=== PATIENT | male | born 1950 | race American Indian/Alaskan Native ===

== ENCOUNTER 2016-03-18 19:55 | Inpatient (IN) | payer MEDICARE ==
--- NOTE | 2016-03-18 20:09 | Emergency Department Report ---
HPI - General Time Seen by Provider: 03/18/16 19:58 - HPI HPI: This is a 66-year-old Afro-Iraqi male who presents to the emergency department by EMS as a code stroke. The patient was going over to a friend's house and at about 7 PM this evening he began having left sided paralysis, left- sided facial droop, and lost the ability to speak and fell to the ground. The friend found him and called and he wants. Patient was not given any treatment but in route he began to regain all of his function but still complains of some decreased sensation to the left side. Patient has a history of hypertension but no previous history of VA, CVA, PE/DVT. He denies tobacco abuse or any illicit drug use. ED Past Medical Hx - Past Medical History Hx Hypertension: Yes - Surgical History Additional Surgical History: LEFT MIDDLE FINGER-DISTAL AMPUTATION - Social History Smoking Status: Current Every Day Smoker Substance Use Type: Alcohol, Prescribed - Medications Home Medications: Home Medications Medication Instructions Recorded Confirmed Last Taken Type Amlodipine Besylate/Benazepril 1 each PO QDAY 03/18/16 03/18/16 03/18/16 History [Amlodipine-Benazepril 5-20 mg] Ciprofloxacin HCl [Ciprofloxacin 500 mg PO Q12HR 03/18/16 03/18/16 03/18/16 History TAB] Lisinopril/Hydrochlorothiazide 1 tab PO QDAY 03/18/16 03/18/16 03/18/16 History [Zestoretic 20-25 mg] Terazosin [Hytrin] 5 mg PO QHS 03/18/16 03/18/16 03/18/16 History ED Review of Systems ROS: Stated complaint: PASSED OUT/POSS STROKE Other details as noted in HPI Comment: All other systems reviewed and negative Constitutional: weakness. denies: chills, fever Eyes: denies: eye pain, eye discharge, vision change ENT: other (facial droop). denies: throat pain Respiratory: denies: cough, shortness of breath, wheezing Cardiovascular: denies: chest pain, palpitations Gastrointestinal: denies: abdominal pain, nausea, diarrhea Genitourinary: denies: urgency, dysuria Musculoskeletal: denies: back pain, joint swelling, arthralgia Skin: denies: rash, lesions Neurological: weakness, numbness, other (aphasia) Physical Exam - Physical Exam Physical Exam: GENERAL: The patient is well-developed well-nourished. Patient slightly anxious but otherwise in no distress. HEENT: Normocephalic. Atraumatic. Extraocular motions are intact. Patient has moist mucous membranes. Pupils equal reactive to light bilaterally. NECK: Supple. Trachea is midline. CHEST/LUNGS: Clear to auscultation. There is no respiratory distress noted. HEART/CARDIOVASCULAR: Regular. There is no tachycardia. There is no gallop rub or murmur. ABDOMEN: Abdomen is soft, nontender. Patient has normal bowel sounds. There is no abdominal distention. SKIN: There is no rash. There is no edema. There is no diaphoresis. NEURO: The patient is awake, alert, and oriented. The patient is cooperative. The patient has no motor neurologic deficits. The patient has normal speech. No pronator drift. No dysmetria. There is some mild subjective decreased sensation to the left side of the face and the left arm. MUSCULOSKELETAL: There is no tenderness or deformity. There is no limitation range of motion. There is no evidence of acute injury. Muscle strength 5 out of 5 for upper and lower extremities bilaterally. ED Course - Consultations Consultation #1: I spoke with the telemedicine neurologist, Dr. Ballesteros, regarding the patient's symptoms and regain of function and my suspicion for TIA. Based on that, Dr. Ballesteros agrees that the patient most likely had a TIA and the patient should be admitted for stroke workup but is not a TPA candidate. 03/18/16 20:29 ED Medical Decision Making - Lab Data Result diagrams: 03/18/16 08:00 03/18/16 08:00 - EKG Data -: EKG Interpreted by Me EKG shows normal: sinus rhythm, axis, intervals, QRS complexes (LVH), ST-T waves Rate: normal - EKG Data When compared to previous EKG there are: no significant change Interpretation: LVH - Radiology Data Radiology results: report reviewed, image reviewed interpreted by me: Chest x-ray did not show any acute process. Heart is normal shape and size. No effusions. No pneumothorax. No signs of pneumonia seen. CT of the head does not show any acute process including no hemorrhage, mass, shift, diffuse edema or skull fracture. - Medical Decision Making 66-year-old male presents to the emergency department after having left-sided hemiplegia, facial droop, decreased sensation and then return of function in route. CT of the head was negative for any acute process. Patient's labs show some mild renal insufficiency. Spoke with the medicine neurology who agrees with the diagnosis of TIA. Patient be admitted to hospital for further evaluation and treatment. Accepted for admission by the hospitalist, Dr Jackson. - Differential Diagnosis CVA, TIA, brain bleed, seizure Critical Care Time: No Critical care attestation.: If time is entered above; I have spent that time in minutes in the direct care of this critically ill patient, excluding procedure time. ED Disposition Clinical Impression: Renal insufficiency, mild TIA (transient ischemic attack) Qualifiers: Transient cerebral ischemia type: unspecified Qualified Code(s): G45.9 - Transient cerebral ischemic attack, unspecified Disposition: OP ADMITTED IP TO THIS HOSP Is pt being admited?: Yes Condition: Stable Referrals: EMILY CASTRO MD [Primary Care Provider] - 3-5 Days Time of Disposition: 22:19
[2016-03-18 20:12] LABS: Hematocrit 40.1 % (35.5-45.6); Hemoglobin 13.3 gm/dl (11.8-15.2); Mean Corpuscular HGB Conc 33 % (32-34); Mean Corpuscular Hemoglobin 32 pg (28-32); Mean Corpuscular Volume 96 fl (84-94); Platelet Count 212 K/mm3 (140-440); Red Blood Count 4.19 M/mm3 (3.65-5.03); Red Cell Distribution Width 13.2 % (13.2-15.2); White Blood Count 9.4 K/mm3 (4.5-11.0)
[2016-03-18 20:22] LABS: INR 1.01 (0.87-1.13); Partial Thromboplastin Time 27.5 Sec. (24.2-36.6)
[2016-03-18 20:30] LABS: Creatine Kinase MB 2.7 ng/mL (0.0-4.0)
[2016-03-18 20:31] LABS: Blood Urea Nitrogen 20 mg/dL (9-20); Calcium 9.3 mg/dL (8.4-10.2); Carbon Dioxide 25 mmol/L (22-30); Glucose 133 mg/dL (75-100)
[2016-03-18 20:32] LABS: Alanine Aminotransferase 15 units/L (7-56); Albumin 4.1 g/dL (3.9-5); Albumin/Globulin Ratio 1.3 %; Alkaline Phosphatase 72 units/L (35-129); Anion Gap 20 mmol/L; Bilirubin,Total 0.2 mg/dL (0.1-1.2); Chloride 95.8 mmol/L (98-107); Creatine Kinase 164 units/L (55-170); Potassium 3.7 mmol/L (3.6-5.0); Sodium 137 mmol/L (137-145); Total Protein 7.3 g/dL (6.3-8.2)
--- NOTE | 2016-03-18 20:33 | Cat Scan Report ---
FINAL REPORT PROCEDURE: CT HEAD/BRAIN WO CON TECHNIQUE: Computerized tomography of the head was performed without contrast material. HISTORY: neuro deficits < 6hrs or sx present upon awakening COMPARISON: No prior studies are available for comparison. FINDINGS: Skull and scalp: Normal. Paranasal sinuses: Extensive mucosal thickening and fluid suspected in the maxillary sinuses. Thickening in the ethmoid sinuses. Possible injury around the left maxillary sinus and orbit area. Defer to CT facial study with regards to evaluation of the bony anatomy and clinical correlation regarding history and presentation in that regard.. Ventricles and subarachnoid spaces: Normal. Cerebrum: No evidence of hemorrhage, acute infarction or mass . Cerebellum and brainstem: No evidence of hemorrhage, acute infarction or mass. Vasculature: No definite hyperdense MCA sign seen. Comments: Mild diffuse atrophy. Moderate low attenuated microischemic change periventricular deep white matter and subcortical locations consistent with chronic microischemic change appearance.. IMPRESSION: No definitive evidence of acute ischemic change however if symptoms and or concern persist consider MRI. There is scattered microischemic change in the deep white matter subcortical areas which could mask an early or subtle acute ischemic process not well delineated on screening CT scans.
[2016-03-18 20:49] LABS: Basophils % (Manual) 0 % (0.0-1.8); Blastocytes % (Manual) 0 %; Eosinophils % (Manual) 0 % (0.0-4.3)
[2016-03-18 20:50] LABS: Diff Status Complete; Platelet Estimate Consistent w Auto; RBC Morphology Normal
[2016-03-18] MEDS ORDERED: BABY ASPIRIN PO ONE (21:04)
--- NOTE | 2016-03-18 22:43 | Admit Criteria Form ---
Admission Criteria Documentation: TELEMETRY CARE Telemetry Admission Guidelines (Place 'X' for any and all applicable criteria): Admission to telemetry [A] may be indicated for ANY ONE of the following(1)(2)(3 )(4)(5): [ ]I. Cardiac disease, including ANY ONE of the following (9)(10)(11)(12)(13 ): [ ]a) Postacute VT [ ]b) Low-risk patients with ST-segment elevation VT who have undergone successful percutaneous coronary intervention [ ]c) Unstable angina [ ]d) Suspected VT (until it is ruled out) [ ]e) Post cardiac surgery (first 48 to 72 hours unless complications occur) [ ]f) Acute arrhythmias (including significant tachycardia or bradycardia) [B] [ ]g) Firing of an implantable cardioverter defibrillator [C] [ ]h) Suspected pacemaker or implantable cardioverter defibrillator malfunction (10) [ ]i) New administration or adjustment of an antiarrhythmic drug [D ] [ ]j) Child admitted for acute congestive heart failure [ ]j) Long QT syndrome [ ]k) Advanced heart block (eg, second-degree Mobitz type II, third- degree heart block) [ ]l) Acute myocarditis or pericarditis [ ]m) Short-term (ambulatory or inpatient) monitoring after a cardiac procedure as indicated by ANY ONE of the following [E]: [ ]i) Electrophysiologic studies [ ]ii) Percutaneous coronary intervention with stent placement [ ]iii) Pacemaker placement with cardiac conduction defect [ ]iv) Implantable cardiac defibrillator placement [ ]II. Drug overdose or poisoning with substance that causes arrhythmias or QT prolongation (eg, phenothiazines, sympathomimetic agents, cyclic antidepressants, digitalis, antiarrhythmic drugs)(15) [ ]III. Short-term (ambulatory or inpatient) monitoring after therapeutic or diagnostic procedure requiring conscious sedation or anesthesia (eg, endoscopy, elective cardioversion) [X ]IV. Acute cerebrovascular even[F](18) [ ]V. Massive blood transfusion (eg, at least 10 units of packed red blood cells in 24 hours) [ ]. Variceal bleeding after endoscopy, sclerotherapy, or IV vasopressin [ ]VII. Uncorrected electrolyte abnormalities associated with an increased risk of dangerous arrhythmia [G]; examples include [ ]a) Hyperkalemia with attributable ECG changes [ ]b) Potassium greater than 6.5 mmol/L (mEq/L) in a patient without history of chronic renal disease [ ]c) Prolonged QT attributed to hypokalemia, hypomagnesemia, or hypocalcemia [ ]VIII.Unexplained syncope or other neurologic event suspected of being due to arrhythmia due to a finding that increases risk; examples include(19)(20)(21): [ ]a) High-risk ECG findings (eg, bifascicular block, bradycardia, abnormal QT interval, ventricular pre- excitation) [ ]b) History of previous syncope due to arrhythmia [ ]c) Abnormal ventricular function (eg, reduced ejection fraction ) [ ]d) Exertional or supine syncope [ ]e) Concerning syncope characteristics (eg, sudden loss of consciousness without prodrome) [ ]f) Family history of sudden [ ]g) Use of arrhythmogenic medication [ ]h) Suspected cardiac ischemia [ ]i) Known channelopathy (eg, long QT syndrome, Brugada syndrome, or catecholaminergic paroxysmal ventricular tachycardia) [ ]j) Known structural heart disease (eg, hypertrophic cardiomyopathy , severe valvular disease) [ ]k) Palpitations preceding syncope The original [employer] content created by [employer] has been revised. The portions of the content which have been revised are identified through the use of italic text or in bold, and [employer] has neither reviewed nor approved the modified material. All other unmodified content is copyright [employer]. Please see references footnoted in the original [employer] edition 2016 Admission Criteria Met: Yes
[2016-03-18] MEDS ORDERED: DULCOLAX PR PRN (23:17)
[2016-03-18] MEDS ORDERED: MILK OF MAGNESIA PO PRN (23:17)
[2016-03-18] MEDS ORDERED: ZOFRAN IV PRN (23:17)
[2016-03-18] MEDS ORDERED: TYLENOL PO PRN (23:17)
[2016-03-18] MEDS ORDERED: APRESOLINE IV PRN (23:17)
[2016-03-18] MEDS ORDERED: SODIUM CHLORIDE FLUSH SYRINGE 10 ML IV PRN (23:17)
[2016-03-18 23:21] LABS: Creatine Kinase MB 2.7 ng/mL (0.0-4.0)
[2016-03-18 23:25] LABS: Creatine Kinase 169 units/L (55-170)
--- NOTE | 2016-03-18 23:58 | History and Physical Report ---
History of Present Illness Date of examination: 03/18/16 Date of admission: 03/18/16 22:14 History of present illness: 66-year-old man with a history of hypertension, diabetes comes emergency room because he developed weakness in the right leg, fell to the floor, no trauma to the head, also had aphasia. It's unclear how long the symptoms lasted for Patient denies chest pain, palpitation, shortness of breath, cough, abdominal pain, hematochezia, dysuria, frequency, fever chills, polydipsia polyuria, hot or cold intolerance, easy bruisability, or rash or bleeding from mucosal membrane, rhinorrhea, epistaxis, earache, tinnitus, blurry vision, eye discharge , anxiety, depression. Other review of systems negative PAST SURGICAL HISTORY: None SOCIAL HISTORY:Smoke half pack a day, drinks 3 beers every other day, no drugs FAMILY HISTORY: Hypertension Medications and Allergies Allergies Allergy/AdvReac Type Severity Reaction Status Date / Time cantolope Allergy Swelling Uncoded 12/21/14 08:49 Home Medications Medication Instructions Recorded Confirmed Last Taken Type Amlodipine Besylate/Benazepril 1 each PO QDAY 03/18/16 03/18/16 03/18/16 History [Amlodipine-Benazepril 5-20 mg] Ciprofloxacin HCl [Ciprofloxacin 500 mg PO Q12HR 03/18/16 03/18/16 03/18/16 History TAB] Lisinopril/Hydrochlorothiazide 1 tab PO QDAY 03/18/16 03/18/16 03/18/16 History [Zestoretic 20-25 mg] Terazosin [Hytrin] 5 mg PO QHS 03/18/16 03/18/16 03/18/16 History Active Meds: Active Medications Acetaminophen (Tylenol) 650 mg PO Q4H PRN PRN Reason: Pain, Mild (1-3) Aspirin (Aspirin) 325 mg PO QDAY TIN Bisacodyl (Dulcolax) 10 mg MO QDAY PRN PRN Reason: Constipation Enoxaparin Sodium (Lovenox) 40 mg SUB-Q QDAY@1000 TIN Hydralazine HCl (Apresoline) 5 mg IV Q6H PRN PRN Reason: Keep SBP between 160-185 mm Hg Magnesium Hydroxide (Milk Of Magnesia) 30 ml PO Q4H PRN PRN Reason: Constipation Ondansetron HCl (Zofran) 4 mg IV Q8H PRN PRN Reason: N/V unrelieved by Reglan Simvastatin (Zocor) 20 mg PO QHS TIN Sodium Chloride (Sodium Chloride Flush Syringe 10 Ml) 10 ml IV PRN PRN PRN Reason: LINE FLUSH Exam - Physical Exam Narrative exam: Gen. appearance: Patient lying in bed, no apparent distress HEENT: Normocephalic, atraumatic, pupils equally round and reactive to light, extraocular movement intact, and no sclericterus,. No JVD or thyromegaly or nodule,neck supple, no carotid bruit ,mucous membranes moist, no exudate or erythema Heart: S1, S2, regular rate and rhythm Lungs: Clear to auscultation bilaterally, breathing comfortable Abdomen: Positive bowel sounds, nontender, nondistended, no organomegaly Extremity: No edema, cyanosis, clubbing Skin: No rash, nodules, warm, dry Neuro: Oriented 3, cranial nerves II-12 intact, speech is fluent, motor and sensory intact - Constitutional Vitals: Temp Pulse Resp BP Pulse Ox 97.6 F 83 16 140/69 99 03/18/16 20:45 03/18/16 21:45 03/18/16 21:45 03/18/16 21:45 03/18/16 21:45 Results - Labs CBC & Chem 7: 03/18/16 08:00 03/18/16 08:00 - Imaging and Cardiology EKG: image reviewed Chest x-ray: image reviewed (nad, read by me) CT Scan - head: report reviewed Assessment and Plan TIA Acute renal insufficiency Hypertension Diabetes EPH Admit to medicine Obtain MRI head, echo, carotid doppler Do neuro checks, swallow screen Start aspirin, statin, IV fluids Consult neurology, PT/OT Start dvt prohalaxis, IV hydralazine for blood pressure control Check fingersticks initiate insulin sliding scale
[2016-03-19 01:11] LABS: Creatine Kinase MB 2.5 ng/mL (0.0-4.0)
[2016-03-19 01:12] LABS: Creatine Kinase 169 units/L (55-170)
[2016-03-19] MEDS ORDERED: D50W (25GM) IV PRN (03:07)
[2016-03-19 03:40] LABS: Urine Drugs of Abuse Note Disclamer
[2016-03-19] MEDS ORDERED: NACL 0.9% 1000 ML 1,000 ML IV SCH (04:00)
[2016-03-19 04:15] LABS: Mucus,Urine 3+ /HPF
[2016-03-19 04:22] LABS: Bilirubin,Urine NEG (Negative); Blood,Urine LG (Negative); Ketones,Urine NEG (Negative); Nitrite,Urine POS (Negative); Urobilinogen,Urine < 2.0 mg/dL (<2.0)
[2016-03-19 04:23] LABS: Leukocyte Esterase,Urine LG (Negative)
[2016-03-19 06:06] LABS: Creatine Kinase MB 2.6 ng/mL (0.0-4.0)
[2016-03-19 06:09] LABS: Creatine Kinase 231 units/L (55-170)
[2016-03-19] MEDS ORDERED: LOVENOX SUB-Q SCH (10:00)
[2016-03-19] MEDS ORDERED: AMLODIPINE BESYLATE PO SCH (10:00)
[2016-03-19] MEDS ORDERED: NON-FORMULARY (Ciprofloxacin Hcl [Ciprofloxacin Tab] 500 MG) PO SCH (10:00)
[2016-03-19] MEDS ORDERED: BENAZEPRIL PO SCH (10:00)
--- NOTE | 2016-03-19 10:11 | XRay Report ---
PORTABLE CHEST: INDICATION: Weakness. COMPARISON: 08/25/2009 FINDINGS: Portable, frontal chest radiograph demonstrates slight exaggerated, though grossly stable cardiomediastinal silhouette. Mild aortic atherosclerotic calcifications. Clear lungs without pleural effusions or CHF. EKG leads. Few bony degenerative changes. CONCLUSION: No acute chest process or significant interval change, providing for the difference in technique, as described. Thank you for the opportunity to participate in this patient's care.
[2016-03-19] MEDS: NOVOLOG SUB-Q SCH ×4 (10:36→22:05)
[2016-03-19] MEDS: LOVENOX SUB-Q SCH (10:37)
[2016-03-19] MEDS: LEVAQUIN PO SCH (10:37)
[2016-03-19] MEDS: ASPIRIN PO SCH (10:37)
[2016-03-19] MEDS: NORVASC PO SCH (10:38)
[2016-03-19] MEDS: ZESTRIL PO SCH (10:39)
--- NOTE | 2016-03-19 11:52 | Magnetic Resonance Report ---
MR BRAIN WITHOUT CONTRAST: HISTORY: Stroke. TECHNIQUE: Multisequence, multiplanar MRI without IV gadolinium. FINDINGS: Compared to the CT brain dated 03/18/16. MRI demonstrates focal area of diffusion restriction in the medial right frontal lobe measuring 2.2 x 0.7 cm on diffusion image 26. This appears to be within the cingulate gyrus. There is no evidence for hemorrhage, mass or extra-axial fluid collection. Moderate nonspecific chronic white matter changes are identified. No chronic infarct. Ventricular size is within normal limits. The remaining brain parenchyma is within normal limits. The posterior fossa and contents are unremarkable. Mild chronic white matter changes in the nery are noted. Both maxillary sinuses are completely occluded with mild overlying diffusion restriction. This could represent acute maxillary sinusitis. The remaining sinuses and mastoid air cells are clear. IMPRESSION: Focal area of [id number] ischemia within the cingulate gyrus of the medial right frontal lobe. No evidence for hemorrhage. Chronic white matter changes. Correlate for acute maxillary sinusitis.
[2016-03-19] MEDS ORDERED: FLUARIX QUAD 2016-2017(36 MOS+) IM ONE (12:00)
[2016-03-19] MEDS ORDERED: PNEUMOVAX 23 IM ONE (12:00)
--- NOTE | 2016-03-19 12:16 | Progress Note ---
Assessment and Plan Assessment and plan: This is a 66-year-old man who presented to the hospital after feeling like his left leg went weak and he fell down. Upon arriving to the hospital there was a concern of him possibly having a TIA was also noted to have a UTI and acute kidney injury MRI brain, image reviewed He is a focal acute to subacute ischemia in the singulate gyrus of the medial frontal lobe 1. TIA Follow-up MRI brain, echo, carotid Dopplers, neurology follow-up 2. UTI Continue antibiotics, follow-up urine culture 3. Acute renal insufficiency/vasomotor nephropathy, Continue IV fluids 4. Diabetes Continue insulin 5. Hypertension Continue current blood pressure medications History Interval history: He currently denies any left leg weakness, denies dizziness, denies weakness, denies fevers, admits to some urinary frequency. Hospitalist Physical - Physical exam Narrative exam: General: Patient appears well in no distress HEENT: MMM, EOMI cardiac: S1-S2 heard lungs: clear to auscultation, abdomen: soft, nontender, nondistended bowel sounds positive extremities: no edema clubbing or cyanosis Skin: no rash or lesion Neuro: no focal deficit Psych: appropriate behavior and mood, cognition intact - Constitutional Vitals: Temp Pulse Resp BP Pulse Ox 97.6 F 95 H 20 145/82 97 03/19/16 09:10 03/19/16 09:10 03/19/16 09:10 03/19/16 09:10 03/19/16 10:00 Results - Labs CBC & Chem 7: 03/18/16 08:00 03/18/16 08:00 Labs: Laboratory Last Values WBC 9.4 K/mm3 (4.5-11.0) 03/18/16 08:00 RBC 4.19 M/mm3 (3.65-5.03) 03/18/16 08:00 Hgb 13.3 gm/dl (11.8-15.2) 03/18/16 08:00 Hct 40.1 % (35.5-45.6) 03/18/16 08:00 MCV 96 fl (84-94) H 03/18/16 08:00 MCH 32 pg (28-32) 03/18/16 08:00 MCHC 33 % (32-34) 03/18/16 08:00 RDW 13.2 % (13.2-15.2) 03/18/16 08:00 Plt Count 212 K/mm3 (140-440) 03/18/16 08:00 Lymph # Sequins [place] 03/18/16 08:00 Add Manual Diff Complete 03/18/16 08:00 Total Counted 100 03/18/16 08:00 Seg Neuts % (Manual) 48.0 % (40.0-70.0) 03/18/16 08:00 Band Neutrophils % 0 % 03/18/16 08:00 Lymphocytes % (Manual) 40.0 % (13.4-35.0) H 03/18/16 08:00 Reactive Lymphs % (Man) 0 % 03/18/16 08:00 Monocytes % (Manual) 12.0 % (0.0-7.3) H 03/18/16 08:00 Eosinophils % (Manual) 0 % (0.0-4.3) 03/18/16 08:00 Basophils % (Manual) 0 % (0.0-1.8) 03/18/16 08:00 Metamyelocytes % 0 % 03/18/16 08:00 Myelocytes % 0 % 03/18/16 08:00 Promyelocytes % 0 % 03/18/16 08:00 Blast Cells % 0 % 03/18/16 08:00 Nucleated RBC % Not Reportable 03/18/16 08:00 Seg Neutrophils # Man 4.5 K/mm3 (1.8-7.7) 03/18/16 08:00 Band Neutrophils # 0.0 K/mm3 03/18/16 08:00 Lymphocytes # (Manual) 3.8 K/mm3 (1.2-5.4) 03/18/16 08:00 Abs React Lymphs (Man) 0.0 K/mm3 03/18/16 08:00 Monocytes # (Manual) 1.1 K/mm3 (0.0-0.8) H 03/18/16 08:00 Eosinophils # (Manual) 0.0 K/mm3 (0.0-0.4) 03/18/16 08:00 Basophils # (Manual) 0.0 K/mm3 (0.0-0.1) 03/18/16 08:00 Metamyelocytes # 0.0 K/mm3 03/18/16 08:00 Myelocytes # 0.0 K/mm3 03/18/16 08:00 Promyelocytes # 0.0 K/mm3 03/18/16 08:00 Blast Cells # 0.0 K/mm3 03/18/16 08:00 WBC Morphology Not Reportable 03/18/16 08:00 Hypersegmented Neuts Not Reportable 03/18/16 08:00 Hyposegmented Neuts Not Reportable 03/18/16 08:00 Hypogranular Neuts Not Reportable 03/18/16 08:00 Smudge Cells Not Reportable 03/18/16 08:00 Toxic Granulation Not Reportable 03/18/16 08:00 Toxic Vacuolation Not Reportable 03/18/16 08:00 Dohle Bodies Not Reportable 03/18/16 08:00 Pelger-Huet Anomaly Not Reportable 03/18/16 08:00 Jemima Rods Not Reportable 03/18/16 08:00 Platelet Estimate Consistent w auto 03/18/16 08:00 Clumped Platelets Not Reportable 03/18/16 08:00 Plt Clumps, EDTA Not Reportable 03/18/16 08:00 Large Platelets Not Reportable 03/18/16 08:00 Giant Platelets Not Reportable 03/18/16 08:00 Platelet Satelliting Not Reportable 03/18/16 08:00 Plt Morphology Comment Not Reportable 03/18/16 08:00 RBC Morphology Normal 03/18/16 08:00 Dimorphic RBCs Not Reportable 03/18/16 08:00 Polychromasia Not Reportable 03/18/16 08:00 Hypochromasia Not Reportable 03/18/16 08:00 Poikilocytosis Not Reportable 03/18/16 08:00 Anisocytosis Not Reportable 03/18/16 08:00 Microcytosis Not Reportable 03/18/16 08:00 Macrocytosis Not Reportable 03/18/16 08:00 Spherocytes Not Reportable 03/18/16 08:00 Pappenheimer Bodies Not Reportable 03/18/16 08:00 Sickle Cells Not Reportable 03/18/16 08:00 Target Cells Not Reportable 03/18/16 08:00 Tear Drop Cells Not Reportable 03/18/16 08:00 Ovalocytes Not Reportable 03/18/16 08:00 Helmet Cells Not Reportable 03/18/16 08:00 [place] Bodies Not Reportable 03/18/16 08:00 [place] Rings Not Reportable 03/18/16 08:00 José Cells Not Reportable 03/18/16 08:00 Bite Cells Not Reportable 03/18/16 08:00 Crenated Cell Not Reportable 03/18/16 08:00 Elliptocytes Not Reportable 03/18/16 08:00 Acanthocytes (Spur) Not Reportable 03/18/16 08:00 Rouleaux Not Reportable 03/18/16 08:00 Hemoglobin C Crystals Not Reportable 03/18/16 08:00 Schistocytes Not Reportable 03/18/16 08:00 Malaria parasites Not Reportable 03/18/16 08:00 Krunal Bodies Not Reportable 03/18/16 08:00 Hem Pathologist Commnt No 03/18/16 08:00 PT 13.2 Sec. (12.2-14.9) 03/18/16 08:00 INR 1.01 (0.87-1.13) 03/18/16 08:00 APTT 27.5 Sec. (24.2-36.6) 03/18/16 08:00 Thrombin Time 15.0 Sec. (15.1-19.6) L 03/18/16 08:00 Sodium 137 mmol/L (137-145) 03/18/16 08:00 Potassium 3.7 mmol/L (3.6-5.0) 03/18/16 08:00 Chloride 95.8 mmol/L (98-107) L 03/18/16 08:00 Carbon Dioxide 25 mmol/L (22-30) 03/18/16 08:00 Anion Gap 20 mmol/L 03/18/16 08:00 BUN 20 mg/dL (9-20) 03/18/16 08:00 Creatinine 1.6 mg/dL (0.8-1.5) H 03/18/16 08:00 Estimated GFR 53 ml/min 03/18/16 08:00 BUN/Creatinine Ratio 12.50 % 03/18/16 08:00 Glucose 133 mg/dL (75-100) H 03/18/16 08:00 POC Glucose 119 (70-105) H 03/19/16 07:50 Calcium 9.3 mg/dL (8.4-10.2) 03/18/16 08:00 Total Bilirubin 0.2 mg/dL (0.1-1.2) 03/18/16 08:00 AST 18 units/L (5-40) 03/18/16 08:00 ALT 15 units/L (7-56) 03/18/16 08:00 Alkaline Phosphatase 72 units/L (35-129) 03/18/16 08:00 Total Creatine Kinase 231 units/L (55-170) H 03/19/16 04:57 CK-MB (CK-2) 2.6 ng/mL (0.0-4.0) 03/19/16 04:57 CK-MB (CK-2) Rel Index 1.1 (0-4) 03/19/16 04:57 Troponin T < 0.010 ng/mL (0.00-0.029) 03/19/16 04:57 Total Protein 7.3 g/dL (6.3-8.2) 03/18/16 08:00 Albumin 4.1 g/dL (3.9-5) 03/18/16 08:00 Albumin/Globulin Ratio 1.3 % 03/18/16 08:00 Triglycerides 98 mg/dL (2-149) 03/19/16 02:41 Cholesterol 163 mg/dL (50-199) 03/19/16 02:41 LDL Cholesterol Direct 105 mg/dL (50-130) 03/19/16 02:41 HDL Cholesterol 39 mg/dL (40-59) L 03/19/16 02:41 Cholesterol/HDL Ratio 4.17 % 03/19/16 02:41 Urine Color Yellow (Yellow) 03/19/16 01:42 Urine Turbidity Turbid (Clear) 03/19/16 01:42 Urine pH 5.0 (5.0-7.0) 03/19/16 01:42 Ur Specific [place] 1.018 (1.003-1.030) 03/19/16 01:42 Urine Protein 100 mg/dl mg/dL (Negative) 03/19/16 01:42 Urine Glucose (UA) Neg mg/dL (Negative) 03/19/16 01:42 Urine Ketones Neg mg/dL (Negative) 03/19/16 01:42 Urine Blood Lg (Negative) 03/19/16 01:42 Urine Nitrite Pos (Negative) 03/19/16 01:42 Ur Reducing Substances Not Reportable 03/19/16 01:42 Urine Bilirubin Neg (Negative) 03/19/16 01:42 Urine Ictotest Not Reportable 03/19/16 01:42 Urine Urobilinogen < 2.0 mg/dL (<2.0) 03/19/16 01:42 Ur Leukocyte Esterase Lg (Negative) 03/19/16 01:42 Urine WBC (Auto) 128.0 /HPF (0.0-6.0) H 03/19/16 01:42 Urine RBC (Auto) 37.0 /HPF (0.0-6.0) 03/19/16 01:42 U Epithel Cells (Auto) 1.0 /HPF (0-13.0) 03/19/16 01:42 Urine WBC Clumps 3+ /HPF 03/19/16 01:42 Urine Mucus 3+ /HPF 03/19/16 01:42 Urine Opiates Screen Presumptive negative 03/19/16 01:42 Urine Methadone Screen Presumptive negative 03/19/16 01:42 Ur Barbiturates Screen Presumptive negative 03/19/16 01:42 Ur Phencyclidine Scrn Presumptive negative 03/19/16 01:42 Ur Amphetamines Screen Presumptive negative 03/19/16 01:42 U Benzodiazepines Scrn Presumptive negative 03/19/16 01:42 Urine Cocaine Screen Presumptive positive 03/19/16 01:42 U Marijuana (THC) Screen Presumptive negative 03/19/16 01:42 Drugs of Abuse Note Disclamer 03/19/16 01:42 Plasma/Serum Alcohol < 0.01 gm% (0-0.07) 03/18/16 20:00 Blood Type O POSITIVE 03/18/16 20:00 Antibody Screen Negative 03/18/16 20:00
--- NOTE | 2016-03-19 17:25 | Echocardiography Report ---
Transthoracic Echocardiogram Indication: CVA BP: 138/69 HR: 65 Conclusions *The left ventricular chamber size is normal. *Global left ventricular systolic function is normal. *The estimated ejection fraction is 65-70%. *Moderate to severe concentric left ventricular hypertrophy is observed. *Abnormal left ventricular diastolic filling is observed, consistent with impaired relaxation. *There is moderate thickening of the non coronary cusp. *There is moderate aortic regurgitation. *There is no evidence of aortic stenosis. *There is trace of mitral regurgitation. *There is trace tricuspid regurgitation. *There is mild dilatation of the ascending aorta. *There is mild dilatation of the aortic root. *The inferior vena cava appears normal in size. *There is less than 50% respiratory change in the inferior vena cava dimension. Findings Procedure Info: The study quality is good. Left Ventricle: The left ventricular chamber size is normal. Moderate to severe concentric left ventricular hypertrophy is observed. Global left ventricular systolic function is normal. The estimated ejection fraction is 65-70%. Abnormal left ventricular diastolic filling is observed, consistent with impaired relaxation. Left Atrium: The left atrial chamber size is normal. Right Ventricle: The right ventricle wall thickness is mildly increased. The right ventricular cavity size is normal. The right ventricular global systolic function is normal. Right Atrium: The right atrial cavity size is normal. Aortic Valve: The aortic valve is trileaflet. There is moderate thickening of the non coronary cusp. Systolic excursion of the aortic valve is normal. There is moderate aortic regurgitation. There is no evidence of aortic stenosis. Mitral Valve: The mitral valve leaflets appear normal. There is trace of mitral regurgitation. There is no evidence of mitral stenosis. Tricuspid Valve: The tricuspid valve is not well visualized. There is trace tricuspid regurgitation. No pulmonary hypertension is noted. There is no tricuspid stenosis. Pulmonic Valve: The pulmonic valve is not well visualized. There is no evidence of pulmonic regurgitation. There is no pulmonic stenosis. Pericardium: There is no pericardial effusion. No pleural effusion is present. Aorta: There is mild dilatation of the ascending aorta. There is mild dilatation of the aortic root. Pulmonary Artery: The main pulmonary artery is not well visualized. Venous: The inferior vena cava appears normal in size. There is less than 50% respiratory change in the inferior vena cava dimension. Measurements Chambers MM Name Value Normal Range IVSd (MM) 1.56 cm (0.6 - 1.1) LVPWd (MM) 1.77 cm (0.6 - 1.1) IVS:LVPW ratio 0.88 ratio - LVIDd (MM) 4.97 cm (3.7 - 5.6) LVIDs (MM) 2.46 cm (2 - 2.8) LV FS (Teichholz) (MM) 50.5 % - LV FS (cube) (MM) 50.5 % - EF Teichholz (MM) 81.7 % - Ao root diameter (MM) 3.8 cm (2 - 3.7) LA dimension (AP) MM 3.7 cm (1.9 - 4) LA:Ao ratio (MM) 0.97 ratio - AV cusp separation (MM) 2.1 cm (1.5 - 2.6) Chambers 2D Name Value Normal Range IVSd (2D) 1.57 cm (0.6 - 1.1) LVPWd 1.7 cm - LVPWd (2D) 2.25 cm (0.6 - 1.1) IVS:LVPW ratio (2D) 0.7 ratio - LVIDd 3.9 cm - LVIDs 2.37 cm - LVIDd (2D) 4.02 cm (3.7 - 5.6) LVIDs (2D) 2.38 cm (2 - 3.8) LV FS (Teichholz) (2D) 40.8 % - LV FS (cube) (2D) 40.8 % - LV EF (2D) 70 % - EF Teichholz (2D) 72.2 % - LA dimension 3.3 cm - Ao root diameter (2D) 4.3 cm (2 - 3.7) LA dimension (AP) 2D 3.3 cm (1.9 - 4) LA:Ao ratio (2D) 0.77 ratio - Volumes/Mass Name Value Normal Range LA ESV SP 4CH (MOD) 26 ml - LV EDV SP 4CH (MOD) 109 ml - LV ESV SP 4CH (MOD) 47 ml - EF SP 4CH (MOD) 57 % - Diastolic/Systolic Function Name Value Normal Range MV E-wave Vmax 0.6 m/sec - MV deceleration time 232 msec - MV A-wave Vmax 1.38 m/sec - MV E:A ratio 0.4 ratio - LV septal e' Vmax 0.05 m/sec - LV lateral e' Vmax 0.06 m/sec - LV E:e' septal ratio 12.6 ratio - LV E:e' lateral ratio 10.7 ratio - Aortic Valve Name Value Normal Range AV VTI 37 cm - AV mean gradient 10 mmHg - LVOT diameter 2 cm - LVOT VTI 24.1 cm - LVOT mean gradient 3 mmHg - SV LVOT 76 ml - VIK (continuity VTI) 2.05 cm2 - AR PHT 503 msec - AR peak gradient 92 mmHg - Tricuspid Valve Name Value Normal Range TR Vmax 1.69 m/sec - TR peak gradient 11 mmHg - Pulmonic Valve/Qp:Qs Name Value Normal Range PV Vmax 0.96 m/sec - PV peak gradient 4 mmHg - PV acceleration time 130 msec -
[2016-03-19] MEDS ORDERED: HABITROL TD SCH (20:00)
[2016-03-19] MEDS ORDERED: ZOCOR PO SCH (22:00)
[2016-03-19] MEDS ORDERED: HYTRIN PO SCH (22:00)
[2016-03-19] MEDS ORDERED: NON-FORMULARY (Terazosin 5 MG) PO SCH (22:00)
--- NOTE | 2016-03-20 03:34 | Cat Scan Report ---
FINAL REPORT EXAM: CT HEAD/BRAIN WO CON HISTORY: FALL . Pain. COMPARISON: CT of the head from March 18, 2016. TECHNIQUE: Axial images obtained skull base through vertex. FINDINGS: No acute intracranial hemorrhage, midline shift or pathologic extra axial fluid collection. Age related volume loss with compensatory dilatation of the ventricular system and chronic small vessel ischemic disease. Otherwise, cavanaugh-white differentiation preserved. Calvarium grossly intact. Mild mucosal thickening the visualized paranasal sinuses. Mastoid air cells are clear. Visualized orbits are grossly unremarkable. IMPRESSION: No grossly acute intracranial abnormality. Mild age related volume loss and moderate chronic small vessel ischemic disease. Findings are grossly stable from prior study.
[2016-03-20 05:18] LABS: BUN/Creatinine Ratio 20.66; Calcium 8.9 mg/dL (8.4-10.2); Chloride 101.1 mmol/L (98-107); Potassium 4.2 mmol/L (3.6-5.0)
[2016-03-20 05:24] LABS: Basophils % (Auto) 0.4 % (0.0-1.8); Eosinophils % (Auto) 0.7 % (0.0-4.3); Hematocrit 37.6 % (35.5-45.6); Hemoglobin 12.6 gm/dl (11.8-15.2); Mean Corpuscular HGB Conc 34 % (32-34); Mean Corpuscular Hemoglobin 32 pg (28-32); Mean Corpuscular Volume 95 fl (84-94); Platelet Count 184 K/mm3 (140-440); Red Blood Count 3.95 M/mm3 (3.65-5.03); Red Cell Distribution Width 12.9 % (13.2-15.2); White Blood Count 8.2 K/mm3 (4.5-11.0)
[2016-03-20] MEDS: NOVOLOG SUB-Q SCH ×2 (09:17→12:35)
[2016-03-20] MEDS: NORVASC PO SCH (10:16)
[2016-03-20] MEDS: ASPIRIN PO SCH (10:16)
[2016-03-20] MEDS: ZESTRIL PO SCH (10:16)
[2016-03-20] MEDS: LEVAQUIN PO SCH (10:16)
[2016-03-20] MEDS: LOVENOX SUB-Q SCH (10:16)
--- NOTE | 2016-03-20 10:34 | Discharge Summary ---
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 MRI brain, image reviewed He is a focal acute to subacute ischemia in the singulate gyrus of the medial frontal lobe 1. TIA MRI showed subacute ischemic stroke, he was put on aspirin and statin and medications optimized. All his symptoms resolved prior to him coming to hospital and did not recur. 2. UTI He's been treated with empiric antibiotics 3. Acute renal insufficiency/vasomotor nephropathy, Corrected with treatment with IV fluids 4. Diabetes Glucose was fairly controlled, he was given sliding scale insulin Hospital 5. Hypertension Continued on home current blood pressure medications Disposition: DISCHARGED TO HOME OR SELFCARE Time spent for discharge: 35 minutes Core Measure Documentation - Palliative Care Palliative Care/ Comfort Measures: Not Applicable - Core Measures Any of the following diagnoses?: stroke - Stroke Discharge Requirements Statin for LDL = or >70 mg/dl on DC: Yes Anticoag for atrial fib/atrial flutter: Not Applicable Antithrombotic for ischemic stroke: No Reason for no antithrombotic on DC: Not Indicated Exam - Constitutional Vitals: Temp Pulse Resp BP Pulse Ox 98.8 F 79 18 148/66 97 03/20/16 07:48 03/20/16 07:48 03/20/16 07:48 03/20/16 07:48 03/20/16 08:29 General appearance: Present: no acute distress, well-nourished - EENT Eyes: Present: PERRL ENT: hearing intact, clear oral mucosa - Neck Neck: Present: supple, normal ROM - Respiratory Respiratory effort: normal Respiratory: bilateral: CTA - Cardiovascular Heart Sounds: Present: S1 & S2. Absent: rub, click - Extremities Extremities: pulses symmetrical, No edema Peripheral Pulses: within normal limits - Abdominal General gastrointestinal: Present: soft, non-tender, non-distended, normal bowel sounds Male genitourinary: Present: normal - Integumentary Integumentary: Present: clear, warm, dry - Musculoskeletal Musculoskeletal: gait normal, strength equal bilaterally - Psychiatric Psychiatric: appropriate mood/affect, intact judgment & insight - Neurologic Neurologic: CNII-XII intact, moves all extremities Plan Follow up with: EMILY CASTRO MD [Primary Care Provider] - 3-5 Days MILES FERRO MD [Staff Physician] - 7 Days Prescriptions: Simvastatin [Zocor TAB] 20 mg PO QHS #30 tablet Aspirin EC [Aspirin Enteric Coated TAB] 81 mg PO QDAY #30 tablet. Nicotine [Habitrol] 7 mg TD Q24H #30 patch Levofloxacin [Levaquin TAB] 500 mg PO Q24HR #5 tablet
[2016-03-20 11:45] VITALS: BP 136/66
[2016-03-21] MEDS ORDERED: LEVAQUIN PO SCH (10:00)
--- NOTE | 2016-03-24 08:13 | Vascular Lab Report ---
CAROTID DUPLEX STUDY: RIGHT PSVEDV CCA PROX:[id number] CCA DIST: 941- ICA PROX: 3811 ICA MID: 7223 ICA DIST: 7316 ECA: 86193 VERT: 40 11 LEFT PSVEDV CCA PROX:139 8 CCA DIST: 80`13 ICA PROX: 7214 ICA MID: 6917 ICA DIST: 7922 ECA: 94 6 VERT: 80 13 REASON FOR EXAM: Stroke. COMMENTS ON THE RIGHT: Doppler frequency analysis is consistent with 16 to 49 percent diameter reduction of the internal carotid artery. Minimal amount of plaque is seen. The common carotid artery is patent. The external carotid artery is patent. The vertebral artery has antegrade flow. COMMENTS ON THE LEFT: Doppler frequency analysis is consistent with 16 to 49 percent diameter reduction of the internal carotid artery. Minimal amount of plaque is seen. The common carotid artery is patent. The external carotid artery is patent. The vertebral artery has antegrade flow. IMPRESSION: Less than 50% diameter reduction in the internal carotid arteries bilaterally. Consider repeat carotid artery duplex in 12 months.
== END 2016-03-20 16:00 | disposition home or self-care (01) | DRG 64 ==
LOC: ED 19:55 → 4A 22:14
PROVIDERS: ADMIT Internal Medicine; ATTEND Internal Medicine
DX: I63.8 Other cerebral infarction (principal); N17.0 Acute kidney failure with tubular necrosis; N39.0 Urinary tract infection, site not specified; G81.94 Hemiplegia, unspecified affecting left nondominant side; R47.01 Aphasia; I10 Essential (primary) hypertension; F17.210 Nicotine dependence, cigarettes, uncomplicated; R29.810 Facial weakness; E11.9 Type 2 diabetes mellitus without complications; W18.30XA Fall on same level, unspecified, initial encounter; Y93.89 Activity, other specified; Y92.89 Other specified places as the place of occurrence of the external cause; Y99.8 Other external cause status; Z82.49 Family history of ischemic heart disease and other diseases of the circulatory system; Z89.022 Acquired absence of left finger(s)
CPT/HCPCS: 36415; 70450; 70551; 71010; 80048; 80053; 80061; 80307; 80320; 81001; 82550; 82553; 82962; 84484; 85007; 85025; 85610; 85670; 85730; 86850; 86900; 86901; 90686; 90732; 93005; 93010; 93306; 93880; 99406; G0480; G8978-GP; G8979-GP; J1650

== ENCOUNTER 2018-07-29 05:17 | Emergency (ER) | payer MEDICARE ==
--- NOTE | 2018-07-29 06:13 | Emergency Department Report ---
ED General Adult HPI - General Chief complaint: Extremity Problem,Nontraumatic Stated complaint: LEFT SIDE HIP PAIN Time Seen by Provider: 07/29/18 06:07 Source: patient Mode of arrival: Stretcher Limitations: No Limitations - History of Present Illness Initial comments: This is a 68-year-old man who arrives with 2 canes which he chronically uses to ambulate. He states he has not been to the doctor for hip pain before. He does admit that he has had discomfort before. He does not report a previous diagnosis of arthritis. The patient states that it hurts when he walks. It is my impression that this is a thoroughly chronic issue. Patient denies fever or chills. He has not had leg swelling. He has had no respiratory symptoms. -: Gradual, week(s), month(s), year(s) (possibly) Location: left, lower extremity Radiation: non-radiation Quality: aching Consistency: intermittent Improves with: none Worsens with: other (walking) Associated Symptoms: denies other symptoms - Related Data Home Medications Medication Instructions Recorded Confirmed Last Taken Amlodipine Besylate/Benazepril 1 each PO QDAY 03/18/16 03/18/16 03/18/16 [Amlodipine-Benazepril 5-20 mg] Terazosin (Nf) [Hytrin (Nf)] 5 mg PO QHS 03/18/16 03/18/16 03/18/16 Previous Rx's Medication Instructions Recorded Last Taken Type Aspirin EC 81 mg PO QDAY #30 tablet. 03/20/16 Unknown Rx Nicotine [Habitrol] 7 mg TD Q24H #30 patch 03/20/16 Unknown Rx Simvastatin (Nf) [Zocor TAB] 20 mg PO QHS #30 tablet 03/20/16 Unknown Rx levoFLOXacin [Levaquin TAB] 500 mg PO Q24HR #5 tablet 03/20/16 Unknown Rx Tamsulosin HCl [Flomax] 0.4 mg PO DAILY #7 capsule 02/10/18 Unknown Rx amLODIPine [Norvasc] 10 mg PO DAILY #30 tab 02/10/18 Unknown Rx hydroCHLOROthiazide [HCTZ] 25 mg PO QDAY #30 tablet 02/10/18 Unknown Rx traMADol [Ultram 50 MG tab] 50 mg PO Q6HR PRN #10 tablet 07/29/18 Unknown Rx Allergies Allergy/AdvReac Type Severity Reaction Status Date / Time cantolope Allergy Swelling Uncoded 12/21/14 08:49 ED Review of Systems ROS: Stated complaint: LEFT SIDE HIP PAIN Other details as noted in HPI Constitutional: denies: chills, fever Eyes: denies: eye pain, eye discharge, vision change ENT: denies: ear pain, throat pain Respiratory: denies: cough, shortness of breath, wheezing Cardiovascular: denies: chest pain, palpitations Endocrine: no symptoms reported Gastrointestinal: denies: abdominal pain, nausea, diarrhea Genitourinary: denies: urgency, dysuria Musculoskeletal: as per HPI, arthralgia. denies: back pain, joint swelling Skin: denies: rash, lesions Neurological: denies: headache, weakness, paresthesias Psychiatric: denies: anxiety, depression Hematological/Lymphatic: denies: easy bleeding, easy bruising ED Past Medical Hx - Past Medical History Previous Medical History?: Yes Hx Hypertension: Yes Hx CVA: Yes (X2) Hx Diabetes: Yes Additional medical history: BPH. HIGH CHOLESTEROL - Surgical History Past Surgical History?: Yes Additional Surgical History: LEFT MIDDLE FINGER-DISTAL AMPUTATION, l't cataract S/P - Social History Smoking Status: Current Every Day Smoker Substance Use Type: None - Medications Home Medications: Home Medications Medication Instructions Recorded Confirmed Last Taken Type Amlodipine Besylate/Benazepril 1 each PO QDAY 03/18/16 03/18/16 03/18/16 History [Amlodipine-Benazepril 5-20 mg] Terazosin (Nf) [Hytrin (Nf)] 5 mg PO QHS 03/18/16 03/18/16 03/18/16 History Aspirin EC 81 mg PO QDAY #30 tablet. 03/20/16 Unknown Rx Nicotine [Habitrol] 7 mg TD Q24H #30 patch 03/20/16 Unknown Rx Simvastatin (Nf) [Zocor TAB] 20 mg PO QHS #30 tablet 03/20/16 Unknown Rx levoFLOXacin [Levaquin TAB] 500 mg PO Q24HR #5 tablet 03/20/16 Unknown Rx Tamsulosin HCl [Flomax] 0.4 mg PO DAILY #7 capsule 02/10/18 Unknown Rx amLODIPine [Norvasc] 10 mg PO DAILY #30 tab 02/10/18 Unknown Rx hydroCHLOROthiazide [HCTZ] 25 mg PO QDAY #30 tablet 02/10/18 Unknown Rx traMADol [Ultram 50 MG tab] 50 mg PO Q6HR PRN #10 tablet 07/29/18 Unknown Rx ED Physical Exam - General Limitations: No Limitations General appearance: alert, in no apparent distress - Head Head exam: Present: atraumatic, normocephalic - Eye Eye exam: Present: normal appearance - ENT ENT exam: Present: mucous membranes moist - Neck Neck exam: Present: normal inspection - Respiratory Respiratory exam: Present: normal lung sounds bilaterally. Absent: respiratory distress - Cardiovascular Cardiovascular Exam: Present: regular rate, normal rhythm. Absent: systolic murmur, diastolic murmur, rubs, gallop - GI/Abdominal GI/Abdominal exam: Present: soft, normal bowel sounds. Absent: distended, tenderness, guarding, rebound - Rectal Rectal exam: Present: deferred - Extremities Exam Extremities exam: Present: normal inspection, tenderness (some tenderness on range of motion of the left hip which appears to be minimally decreased overwhelming), normal capillary refill (dorsalis pedis and posterior tibial pulse left leg are easily palpable), pedal edema (L leg swelling), other (previous finger agitation). Absent: calf tenderness - Back Exam Back exam: Present: normal inspection - Neurological Exam Neurological exam: Present: alert, oriented X3 - Psychiatric Psychiatric exam: Present: normal affect, normal mood - Skin Skin exam: Present: warm, dry, intact, normal color. Absent: rash ED Course Vital Signs 07/29/18 07/29/18 05:28 05:46 Temperature 98 F Pulse Rate 75 Respiratory 16 16 Rate Blood Pressure 163/77 O2 Sat by Pulse 98 98 Oximetry - Reevaluation(s) Reevaluation #1: Patient had a prior creatinine of 1.5-1.6. We will avoid NSAIDs. Review be given a prescription of Ultram for pain. He will be referred to orthopedist Dr. Enrique. 07/29/18 06:56 ED Medical Decision Making - Radiology Data Radiology results: report reviewed FINDINGS: Fracture (s) and/or Dislocation(s): None Joint space(s): Mild narrowing of the hip joint space Soft tissues: Normal Bone mineralization: Normal Foreign bodies: None Critical care attestation.: If time is entered above; I have spent that time in minutes in the direct care of this critically ill patient, excluding procedure time. ED Disposition Clinical Impression: Osteoarthritis of left hip Qualifiers: Osteoarthritis type: primary Qualified Code(s): M16.12 - Unilateral primary osteoarthritis, left hip Disposition: TO HOME OR SELFCARE Is pt being admited?: No Does the pt Need Aspirin: No Condition: Stable Instructions: Osteoarthritis (ED) Additional Instructions: Rest hip. Tylenol or Rx Ultram for pain. Follow up with orthopedic doctor and primary care. See referrals. Dr. Enrique is a hip doctor. Prescriptions: traMADol [Ultram 50 MG tab] 50 mg PO Q6HR PRN #10 tablet PRN Reason: Pain Referrals: JARRETT CRAWFORD [Other] - 3-5 Days LORETO ENRIQUE MD [Staff Physician] - 3-5 Days Time of Disposition: 06:57
--- NOTE | 2018-07-29 06:18 | XRay Report ---
PROCEDURE: XR HIP 2-3V LT TECHNIQUE: Left hip radiographs, 3 views. HISTORY: left hip pain COMPARISONS: None FINDINGS: Fracture (s) and/or Dislocation(s): None Joint space(s): Mild narrowing of the hip joint space Soft tissues: Normal Bone mineralization: Normal Foreign bodies: None IMPRESSION: There is no evidence of an acute fracture. Mild arthritis This document is electronically signed by Leslee Farooq DO., Jul 29 2018 06:16:13 AM ET
[2018-07-29] MEDS ORDERED: ULTRAM PO ONE (06:59)
[2018-07-29 07:47] VITALS: BP 168/73
== END 2018-07-29 08:59 | disposition home or self-care (01) ==
LOC: ED 05:17
DX: M16.12 Unilateral primary osteoarthritis, left hip (principal); I10 Essential (primary) hypertension; E11.9 Type 2 diabetes mellitus without complications; E78.00 Pure hypercholesterolemia, unspecified; F17.200 Nicotine dependence, unspecified, uncomplicated; Z86.73 Personal history of transient ischemic attack (TIA), and cerebral infarction without residual deficits; Z88.8 Allergy status to other drugs, medicaments and biological substances
CPT/HCPCS: 99283